=== PATIENT | male | born 1985 | race Caucasian/White ===

== ENCOUNTER 2017-05-12 15:09 | Emergency (ER) | payer OTHER ==
[~2017-05-12] VITALS: Ht 154.9 cm; Wt 93.4 kg
[~2017-05-12 15:09] MED LIST: ASCO500; Bactrim Ds Tab1 EACH PO; CIPR500 PO; FAMO20 PO; FERR325 PO; FOLI1 PO; FURO40; LEVO750 PO; METR500 PO; MULVITMIND PO; Norco 5-325 Ta1 EACH PO; Omeprazole20 M1; POLYETHYLENE G255 GM; PROC10 PO; SULTRIDS PO; TAMS.4ER PO; TRIM100 PO
== END 2017-05-12 17:10 | disposition home or self-care (01) ==
LOC: ER 15:09
DX: M79.605 Pain in left leg (principal); Q90.9 Down syndrome, unspecified; Z88.0 Allergy status to penicillin; Z88.8 Allergy status to other drugs, medicaments and biological substances; Z79.899 Other long term (current) drug therapy
CPT/HCPCS: 93005; 93010; 93971; 99284

== ENCOUNTER 2019-01-24 15:07 | Emergency (ER) | payer OTHER ==
[~2019-01-24] VITALS: Ht 160 cm; Wt 81.7 kg
[2019-01-24 15:50] LABS: Calcium, Ionized (POC) 1.03 mmol/L (1.10-1.46); Chloride (POC) 108 mmol/L (98-108); Creatinine (POC) 1.2 mg/dL (0.8-1.3); Glucose (ISTAT POC) 150 mg/dL (70-99); Hemoglobin (POC) 14.6 g/dL (13.5-17.5); Sodium (POC) 140 mmol/L (135-148); Total CO2 (POC) 25 mmol/L (21-32)
[2019-01-24] MEDS ORDERED: Zantac150 MG PO (15:53)
[2019-01-24 16:13] LABS: Troponin I <0.015 ng/mL (0.000-0.040)
[2019-01-24 16:16] LABS: Alanine Aminotransfer (ALT/SGP 52 U/L (12-78); Albumin, Blood 3.3 g/dL (3.4-5.0); Albumin/Globulin Ratio 0.7 (0.8-1.8); Alk Phos 71 U/L (50-136); Anion Gap 8 mmol/L (6-16); Aspartate Aminotrans (AST/SGOT 37 U/L (12-37); Bilirubin, Total 0.6 mg/dL (0.1-1.0); Blood Urea Nitrogen 18 mg/dL (8-24); Bun/Creatinine Ratio 17.5 (12.0-20.0); CO2, Blood 22 mmol/L (21-32); Calcium, Blood 8.4 mg/dL (8.5-10.1); Chloride, Blood 110 mmol/L (98-108); Creatinine, Blood 1.03 mg/dL (0.60-1.20); Globulin, Blood 4.9 g/dL (2.2-4.0); Glomerular Filtration Rate >60 (60-); Glucose, Blood 140 mg/dL (70-99); Sodium, Blood 140 mmol/L (136-145); Total Protein, Blood 8.2 g/dL (6.4-8.2)
== END 2019-01-24 18:08 | disposition home or self-care (01) ==
LOC: ER 15:07
PROVIDERS: Emergency Medicine
DX: R07.9 Chest pain, unspecified (principal); K44.9 Diaphragmatic hernia without obstruction or gangrene; K21.9 Gastro-esophageal reflux disease without esophagitis; Z88.0 Allergy status to penicillin; Z88.1 Allergy status to other antibiotic agents; Z79.899 Other long term (current) drug therapy
CPT/HCPCS: 36415; 71046; 80047; 80053; 84484; 85014; 93005; 93010; 99284-25

== ENCOUNTER 2021-04-22 13:25 | Emergency (ER) | payer OTHER ==
[~2021-04-22] VITALS: Ht 152.4 cm; Wt 86.2 kg
[~2021-04-22 13:25] MED LIST changes: +Zantac150 MG PO
[2021-04-22] MEDS ORDERED: CYCLOBENZAPRINE5 MG PO (14:47)
== END 2021-04-22 14:55 | disposition home or self-care (01) ==
LOC: ER 13:25
DX: M54.50 Low back pain, unspecified (principal); Z79.899 Other long term (current) drug therapy; Z88.0 Allergy status to penicillin; Z88.8 Allergy status to other drugs, medicaments and biological substances
CPT/HCPCS: 96372; 99283; A9270; J1885